=== PATIENT | male | born 1995 | race Caucasian/White ===

== ENCOUNTER 2019-04-09 23:05 | Emergency (ER) | payer OTHER ==
[~2019-04-09] VITALS: Ht 172.7 cm; Wt 68.2 kg
[2019-04-10] MEDS ORDERED: LIDOCAINE 2% MDV 20 ML VIAL SC ONE (01:00)
[2019-04-10 01:47] VITALS: BP 118/63
--- NOTE | 2019-04-10 06:04 | REP ---
Clinical: Trauma. Technique: AP, lateral, bilateral oblique views left first digit . Findings: Subtle subluxation at the metacarpophalangeal joint is suggested on oblique view and small fracture fragment versus ossicle cannot be excluded. Clinical and physical correlation is recommended. Impression: Cannot exclude subtle subluxation at the metacarpophalangeal joint with possible small fracture versus ossicle. Electronically Signed by Bull Silverio MD 04/10/2019 05:55 A
--- NOTE | 2019-04-11 12:40 | ED PDOC ---
Post-Departure Follow-Up ft [facility] faxed formal report of left finger films fo [facility] mlg Dahiana Bone MD Apr 11, 2019 12:40
== END 2019-04-10 01:49 | disposition home or self-care (01) ==
LOC: EDBD 23:05 → M ED 23:05
DX: S63.125A Dislocation of interphalangeal joint of left thumb, initial encounter (principal); S63.115A Dislocation of metacarpophalangeal joint of left thumb, initial encounter; W19.XXXA Unspecified fall, initial encounter; Y92.138 Other place on military base as the place of occurrence of the external cause; Y93.9 Activity, unspecified; Y99.1 Military activity